=== PATIENT | female | born 1975 | race African-American/Black ===

== ENCOUNTER 2023-01-21 10:00 | Emergency (ER) | payer MEDICAID ==
[2023-01-21] MEDS ORDERED: Morphine 4 MG/ML Syringe IVPUSH ONE (10:54)
== END 2023-01-21 14:09 | disposition home or self-care (01) ==
LOC: MW.ED 10:00
DX: S82.431A Displaced oblique fracture of shaft of right fibula, initial encounter for closed fracture (principal); X50.1XXA Overexertion from prolonged static or awkward postures, initial encounter
CPT/HCPCS: 73552; 73590; 73610; 96374; 99283; J2270; 29505; 99284

== ENCOUNTER 2023-07-30 22:42 | Emergency (ER) | payer SELFPAY ==
[2023-07-30 23:00] LABS: APPEARANCE,URINE CLEAR; BILIRUBIN,URINE NEGATIVE (NEGATIVE); COLOR,URINE YELLOW; GLUCOSE,URINE NEGATIVE (NEGATIVE); KETONES,URINE NEGATIVE (NEGATIVE); LEUKOCYTE ESTERASE,URINE NEGATIVE (NEGATIVE); NITRITE,URINE NEGATIVE (NEGATIVE); OCCULT BLOOD,URINE NEGATIVE (NEGATIVE); PROTEIN,URINE NEGATIVE (NEGATIVE)
[2023-07-30 23:07] LABS: BACTERIA,URINE RARE (NEGATIVE); EPITHELIAL CELLS,URINE RARE (NONE-FEW); RBC,URINE 0-1 (0-2/HPF); WBC,URINE 0-1 (0-5/HPF)
[2023-07-30] MEDS ORDERED: Ibuprofen 600 MG Tab PO ONE (23:08)
== END 2023-07-30 23:26 | disposition home or self-care (01) ==
LOC: MW.ED 22:42
DX: M54.41 Lumbago with sciatica, right side (principal); M54.42 Lumbago with sciatica, left side; E66.9 Obesity, unspecified; Z68.33 Body mass index [BMI] 33.0-33.9, adult; Z98.890 Other specified postprocedural states
CPT/HCPCS: 81001; 99283; A9270